=== PATIENT | male | born 1955 | race Caucasian/White ===

== ENCOUNTER 2019-11-09 03:50 | Observation (INO) ==
[2019-11-09 04:33] LABS: Basophils # 0.1 K/mcL (0.0-0.2); Basophils % 0.5 %; Eosinophils # 0.1 K/mcL (0.0-0.6); Eosinophils % 0.5 %; Hemoglobin 13.6 g/dL (12.9-16.9); Immature Granulocytes % 1.6 % (0-4); Lymphocytes # 3.5 K/mcL (0.6-4.6); Lymphocytes % 18.5 %; Mean Corpuscular HGB Conc 32.4 g/dL (31.6-35.5); Mean Corpuscular Hemoglobin 29.1 pg (28.0-33.3); Mean Corpuscular Volume 89.9 fL (83.0-100.0); Mean Platelet Volume 10.3 fL (9.4-12.4); Monocytes # 1.2 K/mcL (0.0-1.3); Monocytes % 6.5 %; Neutrophils # 13.5 K/mcL (1.6-8.9); Platelet Count 215 K/mcL (140-400); Red Blood Count 4.67 M/mcL (4.19-5.50); Red Cell Distribution Width 14.1 % (11.5-14.5); Segmented Neutrophils % 72.4 %; White Blood Count 18.7 K/mcL (4.3-11.1)
[2019-11-09 04:43] LABS: Prothrombin Time 22.5 Seconds (9.4-12.1)
[2019-11-09 04:46] LABS: Activated Partial Thrombo Time 33.7 Seconds (26.0-36.0)
[2019-11-09 04:55] LABS: Troponin I < 0.03 ng/mL (< 0.04)
[2019-11-09 05:01] LABS: BUN/Creatinine Ratio 13 (6-26); Blood Urea Nitrogen 24 mg/dL (8-23); Calcium 9.5 mg/dL (8.6-10.3); Carbon Dioxide 27 mEq/L (23-29); Chloride 103 mEq/L (98-107); Glucose 125 mg/dL (70-105); Osmolality,Calculated 292 (280-300); Potassium 4.7 mEq/L (3.5-5.1); Sodium 138 mEq/L (136-145); eGFR For African Americans 46 (> 60); eGFR For Non-African Americans 38 (> 60)
[2019-11-09] MEDS ORDERED: 0.9 % Sodium Chloride 1,000 ML IVC ONE (05:10)
[2019-11-09] MEDS ORDERED: 0.9 % Sodium Chloride 1,000 ML IVC SCH (05:15)
[2019-11-09 05:47] LABS: Magnesium 2.1 mg/dL (1.6-2.6); Phosphorous 4.2 mg/dL (2.7-4.5)
[2019-11-09 06:01] LABS: Thyroid Stimulating Hormone 3.904 mcIU/mL (0.340-5.600)
[2019-11-09] MEDS ORDERED: Naloxone 0.4 MG/ML INJ IVP PRN (06:16)
[2019-11-09] MEDS ORDERED: Ondansetron 4 MG/2 ML VIAL IVP PRN (06:16)
[2019-11-09] MEDS: Cholecalciferol (D-3) 1,000 UNIT (25MCG) TABLET PO SCH (11:06)
[2019-11-09] MEDS: BuPROPion SR (12 HR) 150 MG TABLET PO SCH (11:06)
[2019-11-09] MEDS: FLUoxetine HCl 10 MG CAPSULE PO SCH (11:06)
[2019-11-09] MEDS: Aspirin Enteric Coated 81 MG Tablet PO SCH (11:06)
[2019-11-09] MEDS: Apixaban 5 MG TABLET PO SCH ×2 (11:06→21:02)
[2019-11-09] MEDS: 0.9 % Sodium Chloride 1,000 ML IVC SCH ×2 (11:13→19:30)
[2019-11-09 16:28] LABS: BUN/Creatinine Ratio 14 (6-26); Blood Urea Nitrogen 18 mg/dL (8-23); Calcium 8.3 mg/dL (8.6-10.3); Carbon Dioxide 24 mEq/L (23-29); Chloride 107 mEq/L (98-107); Glucose 102 mg/dL (70-105); Osmolality,Calculated 288 (280-300); Sodium 138 mEq/L (136-145); eGFR For African Americans > 60 (> 60); eGFR For Non-African Americans 57 (> 60)
[2019-11-09] MEDS ORDERED: Melatonin 3 MG TABLET PO SCH (21:00)
[2019-11-10] MEDS: 0.9 % Sodium Chloride 1,000 ML IVC SCH ×2 (03:18→11:10)
[2019-11-10] MEDS: Aspirin Enteric Coated 81 MG Tablet PO SCH (09:29)
[2019-11-10] MEDS: FLUoxetine HCl 10 MG CAPSULE PO SCH (09:29)
[2019-11-10] MEDS: BuPROPion SR (12 HR) 150 MG TABLET PO SCH (09:29)
[2019-11-10] MEDS: Cholecalciferol (D-3) 1,000 UNIT (25MCG) TABLET PO SCH (09:29)
[2019-11-10] MEDS: Apixaban 5 MG TABLET PO SCH (09:29)
[2019-11-10] MEDS ORDERED: Isovue-370 500 ML BOTTLE IVP ONE (10:29)
[2019-11-10 10:40] VITALS: BP 143/98
[2019-11-10 11:24] LABS: Hematocrit 35.1 % (37.5-50.1); Hemoglobin 11.2 g/dL (12.9-16.9); Mean Corpuscular HGB Conc 31.9 g/dL (31.6-35.5); Mean Corpuscular Hemoglobin 28.7 pg (28.0-33.3); Mean Platelet Volume 10.1 fL (9.4-12.4); Platelet Count 161 K/mcL (140-400); Red Cell Distribution Width 14.1 % (11.5-14.5); White Blood Count 7.7 K/mcL (4.3-11.1)
== END 2019-11-10 17:09 | disposition home or self-care (01) ==
LOC: INPPIK 03:50 → EMEROOPIK 03:50 → INPPIK 06:12
PROVIDERS: ADMIT Internal Medicine; ATTEND Internal Medicine